=== PATIENT | male | born 1960 | race American Indian/Alaskan Native ===

== ENCOUNTER 2016-06-27 12:44 | Day surgery (SDC) | payer OTHER ==
[~2016-06-27 12:44] MED LIST: NACL 0.9% 1000 ML 1,000 ML IV SCH; PEPCID PO NR; VANCOMYCIN/NS 1 GM/250 ML 1 GM/250 ML BAG IV NR; VERSED IV NR; ZOFRAN IV PRN
[2016-06-27] MEDS ORDERED: MARCAINE-EPI 0.25%-1:200,000 INFILTRATI ONE ×2 (13:22→14:59)
[2016-06-27] MEDS ORDERED: NACL BACTERIOSTATIC INFILTRATI ONE (13:55)
[2016-06-27] MEDS ORDERED: DILAUDID ONE (13:56)
[2016-06-27] MEDS ORDERED: ZEMURON IV ONE (13:56)
[2016-06-27] MEDS ORDERED: XYLOCAINE MPF 2% ONE (13:56)
[2016-06-27] MEDS ORDERED: DIPRIVAN 10 MG/ML IV ONE (13:56)
--- NOTE | 2016-06-27 13:57 | Anesthesia Consultation ---
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
--- NOTE | 2016-06-27 13:58 | Anesthesia Day of Surgery ---
Anesthesia Day of Surgery - Day of Surgery Patient Examined: Yes Patient H&P Reviewed: Yes Patient is NPO: Yes
[2016-06-27] MEDS ORDERED: NEO SYNEPHRINE/NS Syringe(OR USE) IV ONE (14:36)
[2016-06-27] MEDS ORDERED: NORMODYNE IV ONE (14:49)
[2016-06-27] MEDS ORDERED: ROBINUL ONE ×3 (14:54→15:17)
[2016-06-27] MEDS ORDERED: NACL 0.9% IR ONE (14:59)
[2016-06-27] MEDS ORDERED: DECADRON ONE (15:01)
[2016-06-27] MEDS ORDERED: ZOFRAN ONE (15:01)
[2016-06-27] MEDS ORDERED: NEOSTIGMINE ONE ×2 (15:03)
--- NOTE | 2016-06-27 15:07 | Post Anesthesia Evaluation ---
- Post Anesthesia Evaluation Patient Participated: Yes Airway Patent: Yes Stable Respiratory Function: Yes Nausea/Vomiting: No Temp > 96.8F: Yes Pain Manageable: Yes Adequeate Hydration: Yes Anesthesia Complications: No Block Receding Appropriately: Not Applicable Patient on Ventilator: No
--- NOTE | 2016-06-27 15:23 | Operative Report ---
Operative Report Operative Report: Date of procedure: 06/27/2016 Pre-operative diagnosis: Biliary colic with cholelithiasis Post-operative diagnosis: Same Procedure name(s): Laparoscopic cholecystectomy Surgeon: Daly Piña MD Managed Care Nurse: Hue Barrios M.D. Anesthesia: General EBL: Minimal Complications: None Instrument Count: correct Indications: This is a 56-year-old male with a history of abdominal pain. His workup was consistent with a biliary etiology. The risks and benefits of discussed until all questions were answered. He was subsequently brought to the OR. Findings: As above Procedure: We reviewed the informed consent. We placed the patient supine upon the table. After adequate anesthesia was reached, the patient was prepped and draped in usual sterile fashion. A 5 mm incision was made the level of umbilicus and a Veress needle was placed at this position. The abdomen was then insufflated to 15 mmHg and a 5 mm trocar was placed through the umbilical incision. We inserted the camera at this time. Under direct vision and after infiltration of local anesthetic an 11 mm port was placed in the epigastric location. This was followed by placement of two five mm ports in the right upper quadrant. We identified the gallbladder and the fundus was grasped. This was retracted superiorly. We then grasped the infundibulum and retracted it laterally. At this time we dissected free the cystic duct infundibular junction until the triangle of Calot was clearly identified. We placed 3 clips proximally on the cystic duct, 2 distally. We placed 2 clips proximally on the cystic artery. We transected the cystic duct sharply. We transected the cystic artery using electrocautery. We then dissected the gallbladder free from its fossa using electrocautery. This was placed in Endo Catch bag and removed the abdomen to be sent to pathology for further evaluation. We assured hemostasis at this time. We then evacuated the insufflation. We removed all ports and closed all port sites using a 4-0 Monocryl in a subcuticular fashion. The wounds were bandaged sterilely. The patient tolerated procedure well. They were taken to PACU in no apparent distress after extubation.
--- NOTE | 2016-06-27 15:27 | Short Stay Summary ---
Short Stay Documentation Date of service: 06/27/16 - History H&P: obtained from office - Allergies and Medications Current Medications: Allergies Penicillins Allergy (Verified 06/26/16 09:22) Itching Home Medications Medication Instructions Recorded Confirmed Last Taken Type Carboxymethylcellulose Sodium 1 each OD QDAY 06/26/16 06/26/16 06/26/16 History [Lubricant Eye Drops] Dorzolamide/Timolol(Nf) 2-0.5% 1 drops OP QDAY 06/26/16 06/26/16 06/26/16 History [Cosopt (Nf)] Insulin Aspart [NovoLOG Flexpen] 15 units SQ TIDAC 06/26/16 06/26/16 06/26/16 History Insulin Glargine,Hum.rec.anlog 15 units SQ QHS 06/26/16 06/26/16 06/26/16 History [Touchauncey Solostar] Latanoprost 0.005% [Xalatan 0.005%] 1 drop OP QPM 06/26/16 06/26/16 06/26/16 History Active Medications Famotidine (Pepcid) 20 mg PO PREOP NR Stop: 06/27/16 23:59 Last Admin: 06/27/16 14:02 Dose: 20 mg Hydromorphone HCl (Dilaudid) 0.5 mg IV Q10MIN PRN PRN Reason: Pain , Severe (7-10) Stop: 06/27/16 18:00 Vancomycin HCl (Vancomycin/Ns 1 Gm/250 Ml) 1 gm in 250 mls @ 167.007 mls/hr IV PREOP NR PRN Reason: Protocol Stop: 06/27/16 23:59 Last Admin: 06/27/16 14:34 Dose: 167.007 mls/hr Sodium Chloride (Nacl 0.9% 1000 Ml) 1,000 mls @ 75 mls/hr IV DIRECT TONJA Last Admin: 06/27/16 14:10 Dose: 75 mls/hr Midazolam HCl (Versed) 2 mg IV PREOP NR Stop: 06/27/16 23:59 Last Admin: 06/27/16 14:33 Dose: 2 mg Ondansetron HCl (Zofran) 4 mg IV ONCE PRN PRN Reason: Nausea And Vomiting Stop: 06/27/16 18:00 - Brief post op/procedure progress note Date of procedure: 06/27/16 Pre-op diagnosis: biliary colic with cholelithiasis Post-op diagnosis: same Procedure: Laparoscopic cholecystectomy Anesthesia: EYAD, local Surgeon: SILVIO ESPANA Order Schedule Clerk: DEVORA COSTA Estimated blood loss: minimal Pathology: list (gallbladder) Specimen disposition: to lab Condition: stable - Disposition Condition at discharge: Stable Disposition: DISCHARGED TO HOME OR SELFCARE Short Stay Discharge Plan Wound: open to air, keep clean and dry Follow up with: VALERI CARCAMO MD [Primary Care Provider] - 7 Days SILVIO ESPANA MD [Staff Physician] - 7 Days Prescriptions: oxyCODONE /ACETAMINOPHEN [Percocet 5/325] 1 tab PO Q6HR PRN #30 tablet PRN Reason: Pain
[2016-06-27] MEDS ORDERED: PERCOCET 5/325 PO PRN (15:41)
[2016-06-27] MEDS: DILAUDID IV PRN ×2 (15:46→15:55)
[2016-06-27] MEDS ORDERED: TORADOL ONE (16:38)
[2016-06-27] MEDS ORDERED: TORADOL IV PRN (16:38)
[2016-06-27 17:22] VITALS: BP 116/73
== END 2016-06-27 17:28 | disposition home or self-care (01) ==
LOC: OR 12:44
PROVIDERS: ATTEND Surgery
DX: K80.70 Calculus of gallbladder and bile duct without cholecystitis without obstruction (principal); E10.40 Type 1 diabetes mellitus with diabetic neuropathy, unspecified; M19.90 Unspecified osteoarthritis, unspecified site; E78.5 Hyperlipidemia, unspecified; Z87.01 Personal history of pneumonia (recurrent); Z87.891 Personal history of nicotine dependence; Z79.899 Other long term (current) drug therapy; Z83.3 Family history of diabetes mellitus
CPT/HCPCS: 47562; 82962; 88304; J1100; J1170; J1885; J2250; J2370; J2405; J2704; J2710; J3370; J7030; J1815